=== PATIENT | male | born 1950 ===

== ENCOUNTER 2022-12-09 08:21 | Day surgery (SDC) | payer OTHER ==
[2022-12-09] MEDS: Ringers Lactate 1,000 ML IV ONE ×2 (09:05→09:51)
[2022-12-09] MEDS ORDERED: propofoL 200 MG/20 ML VIAL IV ONE ×3 (09:26→09:34)
[2022-12-09] MEDS ORDERED: LIDOCAINE 1% MPF 5 ML VIAL ONE (09:27)
[2022-12-09 14:36] VITALS: BP 106/90; TEMP 97.2; O2SAT 96
== END 2022-12-09 12:12 | disposition home or self-care (01) ==
LOC: DS 08:21
PROVIDERS: ATTEND Surgery
PROC: 0DB68ZX Excision of Stomach, Via Natural or Artificial Opening Endoscopic, Diagnostic (ICD-10-PCS; 2022-12-09)
PROC: 0DB58ZX Excision of Esophagus, Via Natural or Artificial Opening Endoscopic, Diagnostic (ICD-10-PCS; 2022-12-09)
PROC: 0DB48ZX Excision of Esophagogastric Junction, Via Natural or Artificial Opening Endoscopic, Diagnostic (ICD-10-PCS; 2022-12-09)
PROC: 0DBH8ZX Excision of Cecum, Via Natural or Artificial Opening Endoscopic, Diagnostic (ICD-10-PCS; 2022-12-09)
PROC: 0DBN8ZX Excision of Sigmoid Colon, Via Natural or Artificial Opening Endoscopic, Diagnostic (ICD-10-PCS; 2022-12-09)
PROC: 0DB98ZX Excision of Duodenum, Via Natural or Artificial Opening Endoscopic, Diagnostic (ICD-10-PCS; principal; 2022-12-09 10:30)
PROC: 0DB78ZX Excision of Stomach, Pylorus, Via Natural or Artificial Opening Endoscopic, Diagnostic (ICD-10-PCS; 2022-12-09 10:30)
DX: K21.9 Gastro-esophageal reflux disease without esophagitis (principal); K44.9 Diaphragmatic hernia without obstruction or gangrene; K21.00 Gastro-esophageal reflux disease with esophagitis, without bleeding; K63.5 Polyp of colon; K64.8 Other hemorrhoids; R19.5 Other fecal abnormalities
CPT/HCPCS: 88312; 88305; 43239; 45380; J2704 ×2; J2001; J7120